=== PATIENT | female | born 1995 | race Two or more races ===

== ENCOUNTER 2024-10-16 19:24 | Emergency (ER) | payer MEDICAID, SELFPAY ==
[2024-10-16 19:25] VITALS: BMI 38.4
[2024-10-16 19:56] VITALS: BP 145/83; PULSE 99; RESP 20; TEMP 37.4; O2SAT 99
--- NOTE | 2024-10-16 20:04 | PD.EDEAR ---
ED Ear RME/HPI General Chief complaint: Ear Stated complaint: L EAR INFECTION, ON ABX BUT NOT FEELING BETTER Time Seen by Provider: 10/16/24 19:35 Source: patient Arrival date/time: 10/16/24 19:24 29-year-old female presents emergency department complaining of left ear pain. Patient reports was recently diagnosed with left ear infection 2 days ago and is taking oral and otic antibiotic antibiotics. Patient reports pain is worsened due to she ran out of ibuprofen and is only taking Tylenol. Mode of arrival: ambulatory Limitations: no limitations Related Data Previous Rx's ?Medication ?Instructions ?Recorded meloxicam 7.5 mg tablet 7.5 mg PO QDAY #14 tabs 05/15/24 ibuprofen 600 mg tablet 600 mg PO Q8H PRN pain #20 tabs 10/16/24 Allergies Allergy/AdvReac Type Severity Reaction Status Date / Time No Known Allergies Allergy Verified 03/19/20 15:25 Review of Systems Review of Systems Systems Reviewed: All systems reviewed, normal except as documented Constitutional Constitutional: Reports system reviewed and no additional complaints, except as documented, Denies body ache(s), Denies chills and Denies fever(s) Eyes Eyes: Reports system reviewed and no additional complaints, except as documented and Denies change in vision ENT Ears, Nose, Mouth, and Throat: Reports system reviewed and no additional complaints, except as documented, Denies disequilibrium, Denies dizziness, Reports otalgia, Denies sore throat and Denies vertigo Cardiovascular Cardiovascular: Reports system reviewed and no additional complaints, except as documented, Denies chest pain and Denies dyspnea Respiratory Respiratory: Reports system reviewed and no additional complaints, except as documented, Denies chest congestion, Denies cough and Denies dyspnea Gastrointestinal Gastrointestinal: Reports system reviewed and no additional complaints, except as documented, Denies abdominal pain, Denies nausea and Denies vomiting Musculoskeletal Musculoskeletal: Reports system reviewed and no additional complaints, except as documented, Denies abnormal gait and Denies arthralgias Integumentary/Breasts Skin/Breast: Reports system reviewed and no additional complaints, except as documented, Denies erythema, Denies rash and Denies wounds Neurologic Neurologic: Reports system reviewed and no additional complaints, except as documented, Denies abnormal gait, Denies disequilibrium, Denies dizziness and Denies vertigo Past Medical History Past Medical History NEUROLOGIC: Negative Neurological Disorders CARDIAC: Negative Cardiac Disorders or Congestive Heart Failure RESPIRATORY: Negative Chronic Obstructive Pulmonary Disease (COPD) GASTROINTESTINAL: Negative Gastrointestinal Disorders GENITOURINARY: Negative Genitourinary Disorders or Renal Disease REPRODUCTIVE: Positive Previous Pregnancies MUSCULOSKELETAL: Negative Musculoskeletal Disorders ENDOCRINE: Negative Endocrine Disorders, Diabetes Mellitus Type 1 or Diabetes Mellitus Type 2 HEMATOLOGIC: Negative Blood Disorders OTHER HISTORY: Positive Hospitalization; Negative Autoimmune Disease Family History FAMILY HISTORY: Negative Family Psychiatric Problems, Family Respiratory Disorders, Family Cardiac Disorders, Family Gastrointestinal Problems, Family Cancer, Family Surgery or Family Anesthesia Reaction Surgical History SURGICAL: Negative Section Social History SMOKING STATUS: Never smoker SECOND HAND EXPOSURE: No ED Exam General Limitations: Present no limitations General appearance: Present alert and in no apparent distress Head Head exam: Present atraumatic Eye Eye exam: Present normal appearance, PERRL and EOMI ENT ENT exam: Present normal exam, normal oropharynx and mucous membranes moist Expanded ENT Exam TM/Canal exam: Left TM: erythema, canal discharge and canal tenderness Neck Neck exam: Present normal inspection, full ROM and trachea midline Chest Chest inspection: Present normal inspection and symmetric chest wall rise Respiratory Respiratory exam: Present normal lung sounds bilaterally Cardiovascular Cardiovascular exam: Present regular rate, normal rhythm and normal heart sounds Abdominal Exam Abdominal exam: Present soft and normal bowel sounds Extremities Exam Extremities exam: Present normal inspection and full ROM Back Exam Back exam: Present normal inspection and full ROM Neurological Exam Neurological exam: Present alert, oriented X3 and CN II-XII intact Psychiatric Psychiatric exam: Present normal affect and normal mood Skin Skin exam: Present warm, dry, intact and normal color Course Quality Measures none Orders Category Date Time Status Ketorolac Inj [Toradol Inj] Med 10/16/24 20:04 Discontinued 30 mg IM X1 ONE Vital Signs Vital signs: Vital Signs Temperature 99.4 F 10/16/24 19:56 Pulse Rate 99 10/16/24 19:56 Respiratory Rate 20 10/16/24 19:56 Blood Pressure 145/83 H 10/16/24 19:56 Pulse Oximetry (%) 99 10/16/24 19:56 Oxygen Delivery Method Room Air 10/16/24 19:56 99% room air within normal limits Ear MDM Narrative MDM Narrative:: 29-year-old female presents emergency department complaining of left ear pain. Patient reports was recently diagnosed with left ear infection 2 days ago and is taking oral and otic antibiotic antibiotics. Patient reports pain is worsened due to she ran out of ibuprofen and is only taking Tylenol. Left ear exam ear canal erythematous and tender with yellow/green drainage. Patient reports started taking antibiotics yesterday. Patient appears nontoxic and is hemodynamically stable. Patient given pain medication and prescription for ibuprofen and instructed to continue taking antibiotics as prescribed and follow-up with primary care provider upon discharge. Patient data External records reviewed:: [facility] [place] previous records Clinical information provided by:: patient Social determinants that could affect healthcare access:: none Patient has the following chronic illnesses:: See chart How is presenting disease/condition affected by chronic disease/condition?: uneffected by Evaluation data The following diagnostics were reviewed and interpreted by me:: other (specify) (n/a) Lab and/or radiology exams considered but not ordered:: n/a Interpretation Summary: n/a Medications / Prescriptions Medications or Prescriptions considered but not ordered:: ordered Medication administrations:: Medication Administration History Discontinued Medications Ketorolac Tromethamine (Ketorolac Inj 60 Mg/2 Ml Vial) 30 mg IM X1 ONE Stop: 10/16/24 20:05 Last Admin: 10/16/24 20:15 Dose: 30 mg Documented By: KF Given Consultations Consultation(s) initiated? (list below): No Diagnosis Ear Differential Diagnosis: otitis externa, otitis media and ruptured TM Most likely diagnosis given after review of the tests above:: Otitis media Admission Indicated Admission indicated?: not indicated Admission Request Was there a request for admission?: No Disposition Plan Disposition Plan: Discharge Discharge Attestation Discharge Attestation: The patient and all family members were given an opportunity to ask questions and understood the discharge instructions. Discharge instructions specifically effects, indications for sooner follow up or return to the emergency department, and the expected course of current diagnosis. Patient condition: Stable Discharge Plan Plan Patient Disposition: HOME (Self Care) Disposition Comment: Stable Prescriptions/Referrals Prescriptions/Med Rec: New ibuprofen 600 mg tablet 600 mg PO Q8H PRN (Reason: pain) Qty: 20 0RF No Action meloxicam 7.5 mg tablet 7.5 mg PO QDAY Qty: 14 0RF Problem List Clinical Impression: Otitis media Patient/Caregiver Discharge Instructions Discharge Activity: activity as tolerated Education Materials: Anatomy of the Ear, When to Use Antibiotics Additional Instructions: Continue taking oral antibiotic antibiotics as prescribed by your primary care provider. Drink plenty of fluids and get plenty of rest. Take ibuprofen and Tylenol as needed for pain. Follow-up with primary care provider in 2 to 3 days. Return to emergency department for any worsening symptoms or as needed. Print Language: Grenadian Stand Alone Forms: Roberta Award Info., Patient Portal Info Letter PA/LABOR AND DELIVERY REGISTERED NURSE Supervising Physician PA/LABOR AND DELIVERY REGISTERED NURSE Supervising Physician: Dr. Hudson
[2024-10-16] MEDS: KETOROLAC INJ 60 MG/2 ML VIAL 30 MG IM (20:15)
== END 2024-10-16 20:18 | disposition home or self-care (01) ==
PROVIDERS: Emergency Provider Emergency Medicine
DX: H66.92 Otitis media, unspecified, left ear (principal)
CPT/HCPCS: 96372; 99283; J1885